=== PATIENT | female | born 1955 | race Hispanic/Latino ===

== ENCOUNTER 2021-04-25 15:52 | Emergency (ER) | payer OTHER ==
[~2021-04-25] VITALS: Ht 157.5 cm; Wt 59.0 kg
[2021-04-25 16:23] LABS: APPEARANCE,URINE Clear (CLEAR); BILIRUBIN,URINE Negative (NEGATIVE); COLOR,URINE Yellow (YELLOW); GLUCOSE, URINE (UA) Negative (NEGATIVE); KETONES,URINE Negative (NEGATIVE); LEUKOCYTE ESTERASE ,URINE Trace (NEGATIVE); NITRATE,URINE Negative (NEGATIVE); OCCULT BLOOD,URINE Negative (NEGATIVE); PH,URINE 6.5 (5.0-8.0); PROTEIN,URINE Negative (NEGATIVE); UROBILINOGEN,URINE 0.2 mg/dL (0.2-1.0)
[2021-04-25 16:40] LABS: BACTERIA,URINE Rare /HPF (None Seen); MUCUS,URINE Few LPF (None Seen); RBC,URINE 0-1 /HPF (0-1); SQUAMOUS EPITHELIAL CELL,UR Few /HPF (0-2)
[2021-04-25] MEDS ORDERED: KETOROLAC 60 MG VIAL (30MG/ML) IM ONE (17:00)
[2021-04-25] MEDS ORDERED: AMOX-429 PO (18:40)
[2021-04-25] MEDS ORDERED: [UNRECOGNIZED DRUG - CODE] PO (18:40)
[2021-04-25] MEDS ORDERED: FLUT16H NASAL (18:40)
[2021-04-25 18:54] VITALS: BP 135/74
== END 2021-04-25 19:00 | disposition home or self-care (01) ==
LOC: EDH 15:52
DX: J01.01 Acute recurrent maxillary sinusitis (principal); Z20.822 Contact with and (suspected) exposure to COVID-19; F41.9 Anxiety disorder, unspecified; Z21 Asymptomatic human immunodeficiency virus [HIV] infection status; Z79.1 Long term (current) use of non-steroidal anti-inflammatories (NSAID)
CPT/HCPCS: 70486; 81001; 87635; 96372; C9803; J1885